=== PATIENT | male | born 1960 | race Two or more races ===

== ENCOUNTER → 2024-11-13 | Outpatient (CLI) | payer MEDICAID, SELFPAY ==
--- NOTE | 2024-11-13 14:45 | XR_ITS ---
EXAMINATION: PET/CT FUSION SKULL TO THIGH EXAM DATE AND TIME: November 02, 2023 1458 hours Comparison March 03, 2024 INDICATIONS: Diagnosis multiple myeloma restaging posttreatment CTDI:vol (mGy) 6.67 DLP: (mGycm) 691.7 PROCEDURE: 15.06 mCi FDG was administered intravenously To allow for distribution and uptake of radiotracer, the patient was allowed to rest quietly in a shielded room. Imaging was performed on an integrated 16-slice PET/CT scanner, with scanning from the skull base to the mid thigh. Serum blood glucose at the time of the injection was measured at 91 mg/dL. CT scanning was performed without oral or intravenous contrast material. FINDINGS: Head and Neck: There is no taty hypermetabolism in the neck. The visualized portions of the brain are normal in appearance on CT. Chest: There is no taty hypermetabolism in the chest. There are no pulmonary nodules. Abdomen and Pelvis: There is no taty hypermetabolism in retroperitoneal or pelvic chains. The spleen is normal in size and FDG avidity. Musculoskeletal: Marrow uptake is within normal range. Stable osteolytic lesion L1 Stable osteolytic lesion S1 IMPRESSION: No interval metastatic disease Stable osteolytic lesions L1 S1 compared to PET/CT scan March 03, 2024
== END | disposition home or self-care (01) ==
LOC: CDIM 14:31
PROVIDERS: Referring Provider Internal Medicine Hematology & Oncology; Visit Provider Internal Medicine Hematology & Oncology
DX: C79.51 Secondary malignant neoplasm of bone (principal); C90.20 Extramedullary plasmacytoma not having achieved remission; C90.02 Multiple myeloma in relapse; M89.58 Osteolysis, other site
CPT/HCPCS: 78815; A9552